=== PATIENT | male | born 1990 | race Caucasian/White ===

== ENCOUNTER 2020-05-01 20:44 | Emergency (ER) | payer SELFPAY ==
[~2020-05-01] VITALS: Ht 180.3 cm; Wt 81.6 kg
[2020-05-01 20:46] VITALS: BP 115/75; Ht 180.3 cm; Wt 81.6 kg
== END 2020-05-01 21:24 | disposition home or self-care (01) ==
LOC: ED 20:44
DX: U07.1 COVID-19 (principal); B34.9 Viral infection, unspecified
CPT/HCPCS: U0003-CS